=== PATIENT | male | born 1960 | race Caucasian/White ===

== ENCOUNTER 2018-03-05 05:15 | Inpatient (IN) | payer OTHER ==
[2018-03-05 05:48] LABS: ABNORMAL IP MESSAGE 1; HEMATOCRIT 31.5 % (42.0-52.0); HEMOGLOBIN 10.3 g/dl (14.0-18.0); MEAN CORPUSCULAR HEMOGLOBIN 28.9 pg (29.0-33.0); MEAN CORPUSCULAR HGB CONC 32.7 g/dl (32.0-37.0); MEAN CORPUSCULAR VOLUME 88.5 fl (82.0-101.0); MEAN PLATELET VOLUME 10.1 fl (7.4-10.4); PLATELET COUNT 300 10^3/UL (140-415); POSITIVE DIFF @See below; RED BLOOD COUNT 3.56 10^6/ul (4.70-6.10); RED CELL DISTRIBUTION WIDTH 16.1 % (11.5-14.5)
[2018-03-05 05:48] LABS: WHITE BLOOD COUNT 17.7 10^3/ul (4.8-10.8)
[2018-03-05 05:55] LABS: ADD MAN DIFF? YES
[2018-03-05 06:06] LABS: ALANINE AMINOTRANSFERASE 111 IU/L (13-69); ALBUMIN 3.8 g/dl (3.3-4.9); ALBUMIN/GLOBULIN RATIO 0.88; ALKALINE PHOSPHATASE 193 IU/L (42-121); ANION GAP 19 (8-16); ASPARTATE AMINO TRANSFERASE 54 IU/L (15-46); BILIRUBIN,INDIRECT 0.2 mg/dl (0-1.1); BILIRUBIN,TOTAL 0.2 mg/dl (0.2-1.3); BLOOD UREA NITROGEN 21 mg/dl (7-20); CALCIUM 9.6 mg/dl (8.4-10.2); CARBON DIOXIDE 27 mmol/L (21-31); CHLORIDE 98 mmol/L (97-110); CREATININE 0.47 mg/dl (0.61-1.24); GLUCOSE 137 mg/dl (70-220); POTASSIUM 4.6 mmol/L (3.5-5.1); SODIUM 139 mmol/L (135-144); TOTAL PROTEIN 8.1 g/dl (6.1-8.1)
[2018-03-05 06:10] LABS: LACTIC ACID 2.4 mmol/L (0.5-2.0)
[2018-03-05 06:17] LABS: INR 1.08; PROTIME 14.1 Sec (11.9-14.9); PT RATIO 1.1
[2018-03-05 06:18] LABS: PARTIAL THROMBOPLASTIN TIME 36.9 Sec (25.0-35.0); TROPONIN-I 0.022 ng/ml (0.000-0.120)
[2018-03-05 06:34] LABS: ADD UMIC YES; UR ASCORBIC ACID 40 mg/dL (NEGATIVE); UR BACTERIA FEW /HPF (NONE SEEN); UR BILIRUBIN (Dip) NEGATIVE (NEGATIVE); UR BLOOD (Dip) 2+ mg/dL (NEGATIVE); UR CALCIUM OXALATE CRYSTAL FEW /HPF (NONE SEEN); UR CLARITY CLEAR (CLEAR); UR COLOR YELLOW (YELLOW); UR GLUCOSE (Dip) NEGATIVE (NEGATIVE); UR KETONES (Dip) NEGATIVE (NEGATIVE); UR LEUKOCYTE ESTERASE (Dip) 3+ Leu/ul (NEGATIVE); UR MUCUS FEW /HPF (NONE SEEN); UR NITRITE (Dip) POSITIVE (NEGATIVE); UR RBC > 182 /HPF (0-5); UR SPECIFIC GRAVITY (Dip) 1.017 (1.003-1.030); UR TOTAL PROTEIN (Dip) NEGATIVE (NEGATIVE); UR UROBILINOGEN (Dip) NEGATIVE (NEGATIVE); UR WBC 54 /HPF (0-5)
[2018-03-05] MEDS: CEFEPIME 2GM/50 ML (PMX) 50 ML IVPB (06:35)
[2018-03-05] MEDS: SODIUM CHLORIDE 0.9% 1L BAG IV* (06:35)
[2018-03-05 07:03] LABS: AADO2 Arterial 168.2 mmHg (7.0-24.0); Allen Test ACCEPTAB; Arterial Base Excess 5.7 mmol/L (-3.0-3); Arterial Blood Gas Oxygen Sat 98.9 mmHG (95.0-98.0); Arterial COHb 0.3 % (0.0-3.0); Arterial Fraction of Oxyhgb 98.2 % (93.0-99.0); Arterial HCO3 28.5 mmol/L (22.0-26.0); Arterial MetHb 0.4 % (0.0-1.5); Arterial Total Hemglobin 11.1 g/dl (12.0-18.0); Arterial pCO2 34.8 mmhg (35-45); MODE VENT - AC; Site Right Radial
[2018-03-05] MEDS: VANCOMYCIN 1 GM (PMX) 250 ML IVPB (07:10)
[2018-03-05] MEDS ORDERED: ONDANSETRON 4 MG INJ IV (08:30)
[2018-03-05] MEDS ORDERED: ACETAMINOPHEN 325 MG TAB PO ×2 (08:30→11:00)
[2018-03-05] MEDS: ACETAMINOPHEN 650MG/20.3ML CUP GTB (08:31)
[2018-03-05] MEDS: LEVETIRACETAM (100 MG/ML) 5ML CUP GTB (08:33)
[2018-03-05 09:14] LABS: ANISOCYTOSIS 1+ (0-0); BAND NEUTROPHILS #M 7.4 10^3/ul (0.0-0.6); BAND NEUTROPHILS % (M) 42 % (0-4); LYMPHOCYTES #M 0.7 10^3/ul (0.8-2.9); LYMPHOCYTES % (M) 4 % (15-51); MONOCYTE #M 0.5 10^3/ul (0.3-0.9); MONOCYTES % (M) 3 % (0-11); PLATELET ESTIMATE NORMAL; POLYCHROMASIA 2+ (0-0); REACTIVE LYMPHOCYTES #M 0.1 10^3/ul (0.0-0.0); REACTIVE LYMPHOCYTES% (M) 1 % (0-0); SEG NEUT #M 10.2 10^3/ul (1.6-7.5); SEGMENTED NEUTROPHILS (M) % 50 % (39-77); SMUDGE%M 1 % (0-0)
[2018-03-05 09:14] LABS: LACTIC ACID 1.1 mmol/L (0.5-2.0)
[2018-03-05] MEDS ORDERED: VANCOMYCIN IV PER PHARMACY XX (11:00)
[2018-03-05] MEDS ORDERED: ONDANSETRON 4 MG TAB PO (11:00)
[2018-03-05 11:34] LABS: CREATINE KINASE 105 IU/L (23-200)
[2018-03-05 11:35] LABS: LACTIC ACID 1.5 mmol/L (0.5-2.0)
[2018-03-05 11:47] LABS: CK INDEX 2.6; CK-MB 2.75 ng/ml (0.0-2.4); TROPONIN-I 0.028 ng/ml (0.000-0.120)
[2018-03-05] MEDS: SOD CHLORIDE 0.9% 100 ML (12:45)
[2018-03-05] MEDS: LIDOCAINE 1% (MPF) 5 ML VIAL SC (13:03)
[2018-03-05] MEDS: VANCOMYCIN 750 MG in SOD CHLORIDE 0.9% 150 ML IVPB ×2 (16:23→23:20)
[2018-03-05] MEDS: SOD CHLORIDE 0.9% 1,000 ML IV (16:23)
[2018-03-05 17:41] LABS: CREATINE KINASE 171 IU/L (23-200)
[2018-03-05 17:52] LABS: CK INDEX 2.5; TROPONIN-I 0.014 ng/ml (0.000-0.120)
[2018-03-05] MEDS: DOCUSATE SODIUM 100 MG CAP PO (21:00)
[2018-03-05] MEDS: CEFEPIME 1GM/50 ML (PMX) 50 ML IVPB (21:00)
[2018-03-06] MEDS: PANTOPRAZOLE (EC) 40 MG TAB PO (05:44)
[2018-03-06 06:12] LABS: ADD MAN DIFF? NO
[2018-03-06 06:25] LABS: WHITE BLOOD COUNT 13.4 10^3/ul (4.8-10.8)
[2018-03-06 06:25] LABS: BASOPHILS % 0.2 % (0.0-2.0); EOSINOPHILS % 0.3 % (0.0-7.0); HEMATOCRIT 26.9 % (42.0-52.0); HEMOGLOBIN 8.5 g/dl (14.0-18.0); LYMPHOCYTES # 0.7 10^3/ul (0.8-2.9); LYMPHOCYTES % 5.2 % (15.0-51.0); MEAN CORPUSCULAR HEMOGLOBIN 28.8 pg (29.0-33.0); MEAN CORPUSCULAR HGB CONC 31.6 g/dl (32.0-37.0); MEAN CORPUSCULAR VOLUME 91.2 fl (82.0-101.0); MEAN PLATELET VOLUME 10.7 fl (7.4-10.4); MONOCYTE # 0.4 10^3/ul (0.3-0.9); MONOCYTES % 2.8 % (0.0-11.0); NEUTROPHIL # 12.2 10^3/ul (1.6-7.5); NEUTROPHILS % 91.1 % (39.0-77.0); PLATELET COUNT 245 10^3/UL (140-415); RED BLOOD COUNT 2.95 10^6/ul (4.70-6.10); RED CELL DISTRIBUTION WIDTH 16.2 % (11.5-14.5)
[2018-03-06 06:45] LABS: VANCOMYCIN,TROUGH 13.2 ug/ml (10.0-20.0)
[2018-03-06 06:52] LABS: ALANINE AMINOTRANSFERASE 85 IU/L (13-69); ALBUMIN 3.2 g/dl (3.3-4.9); ALKALINE PHOSPHATASE 151 IU/L (42-121); ANION GAP 10 (8-16); ASPARTATE AMINO TRANSFERASE 51 IU/L (15-46); BILIRUBIN,INDIRECT 0.3 mg/dl (0-1.1); BILIRUBIN,TOTAL 0.3 mg/dl (0.2-1.3); BLOOD UREA NITROGEN 16 mg/dl (7-20); CALCIUM 9.4 mg/dl (8.4-10.2); CARBON DIOXIDE 29 mmol/L (21-31); CHLORIDE 103 mmol/L (97-110); CHOL/HDL RATIO 4.8 RATIO; CHOLESTEROL 106 mg/dl (100-200); CREATININE 0.44 mg/dl (0.61-1.24); GLUCOSE 101 mg/dl (70-220); HDL CHOLESTEROL 22 mg/dl (28-71); LDL CHOLESTEROL,CALCULATED 60 mg/dl; MAGNESIUM 1.9 mg/dl (1.7-2.5); SODIUM 138 mmol/L (135-144); TOTAL PROTEIN 7.2 g/dl (6.1-8.1); TRIGLYCERIDES 119 mg/dl (0-149)
[2018-03-06] MEDS: CEFEPIME 1GM/50 ML (PMX) 50 ML IVPB ×2 (08:38→21:55)
[2018-03-06] MEDS: DOCUSATE SODIUM 100 MG CAP PO ×2 (08:38→22:01)
[2018-03-06] MEDS: ASCORBIC ACID 500 MG TAB GTB (08:38)
[2018-03-06] MEDS: ZINC SULFATE 220 MG CAP PO (08:38)
[2018-03-06] MEDS: ENOXAPARIN 30 MG/0.3 ML SYG SC (08:47)
[2018-03-06] MEDS: VANCOMYCIN 750 MG in SOD CHLORIDE 0.9% 150 ML IVPB ×2 (09:25→17:39)
[2018-03-06 12:43] LABS: IRON 31 ug/dl (35-150)
[2018-03-06 12:52] LABS: % IRON SATURATION 13 % SAT (22-52); TOTAL IRON BINDING CAPACITY 239 ug/dl (241-421)
[2018-03-07] MEDS: VANCOMYCIN 750 MG in SOD CHLORIDE 0.9% 150 ML IVPB ×3 (01:41→17:39)
[2018-03-07] MEDS: PANTOPRAZOLE (EC) 40 MG TAB PO (05:18)
[2018-03-07] MEDS: ZINC SULFATE 220 MG CAP PO (08:01)
[2018-03-07] MEDS: CEFEPIME 1GM/50 ML (PMX) 50 ML IVPB ×2 (08:02→21:42)
[2018-03-07] MEDS: DOCUSATE SODIUM 100 MG CAP PO ×2 (08:02→21:42)
[2018-03-07] MEDS: ASCORBIC ACID 500 MG TAB GTB (08:02)
[2018-03-07] MEDS: ENOXAPARIN 30 MG/0.3 ML SYG SC (08:09)
[2018-03-07 12:42] LABS: ALANINE AMINOTRANSFERASE 87 IU/L (13-69); ALBUMIN 3.1 g/dl (3.3-4.9); ALKALINE PHOSPHATASE 145 IU/L (42-121); ASPARTATE AMINO TRANSFERASE 55 IU/L (15-46); BILIRUBIN,INDIRECT 0.1 mg/dl (0-1.1); BILIRUBIN,TOTAL 0.1 mg/dl (0.2-1.3); TOTAL PROTEIN 6.6 g/dl (6.1-8.1)
[2018-03-07 12:43] LABS: MAGNESIUM 1.8 mg/dl (1.7-2.5)
[2018-03-07] MEDS: SOD FERRIC GLUC COMPLX 125 MG in SOD CHLORIDE 0.9% 100 ML IVPB (16:32)
[2018-03-08] MEDS: VANCOMYCIN 750 MG in SOD CHLORIDE 0.9% 150 ML IVPB (02:13)
[2018-03-08] MEDS: PANTOPRAZOLE (EC) 40 MG TAB PO (06:09)
[2018-03-08 06:24] LABS: ADD MAN DIFF? NO
[2018-03-08 06:28] LABS: BASOPHILS % 0.4 % (0.0-2.0); EOSINOPHILS # 0.2 10^3/ul (0.0-0.5); EOSINOPHILS % 2.2 % (0.0-7.0); HEMATOCRIT 30.9 % (42.0-52.0); HEMOGLOBIN 9.8 g/dl (14.0-18.0); LYMPHOCYTES # 0.8 10^3/ul (0.8-2.9); LYMPHOCYTES % 11.6 % (15.0-51.0); MEAN CORPUSCULAR HEMOGLOBIN 28.6 pg (29.0-33.0); MEAN CORPUSCULAR HGB CONC 31.7 g/dl (32.0-37.0); MEAN CORPUSCULAR VOLUME 90.1 fl (82.0-101.0); MEAN PLATELET VOLUME 10.5 fl (7.4-10.4); MONOCYTE # 0.4 10^3/ul (0.3-0.9); MONOCYTES % 5.9 % (0.0-11.0); NEUTROPHIL # 5.4 10^3/ul (1.6-7.5); NEUTROPHILS % 79.5 % (39.0-77.0); PLATELET COUNT 283 10^3/UL (140-415); RED BLOOD COUNT 3.43 10^6/ul (4.70-6.10); RED CELL DISTRIBUTION WIDTH 15.9 % (11.5-14.5)
[2018-03-08 06:28] LABS: WHITE BLOOD COUNT 6.8 10^3/ul (4.8-10.8)
[2018-03-08 07:15] LABS: ANION GAP 10 (8-16); BLOOD UREA NITROGEN 14 mg/dl (7-20); CALCIUM 9.2 mg/dl (8.4-10.2); CARBON DIOXIDE 28 mmol/L (21-31); CHLORIDE 107 mmol/L (97-110); CREATININE 0.37 mg/dl (0.61-1.24); GLUCOSE 119 mg/dl (70-220); POTASSIUM 3.8 mmol/L (3.5-5.1); SODIUM 141 mmol/L (135-144)
[2018-03-08] MEDS: ASCORBIC ACID 500 MG TAB GTB (08:07)
[2018-03-08] MEDS: ZINC SULFATE 220 MG CAP PO (08:07)
[2018-03-08] MEDS: CEFEPIME 1GM/50 ML (PMX) 50 ML IVPB (08:07)
[2018-03-08] MEDS: ENOXAPARIN 30 MG/0.3 ML SYG SC (08:10)
[2018-03-08] MEDS: DOCUSATE SODIUM 100 MG CAP PO (08:11)
[2018-03-08 11:07] LABS: VANCOMYCIN,TROUGH 14.3 ug/ml (10.0-20.0)
== END 2018-03-08 17:34 | DRG 871 ==
LOC: TEL 18:40 → E/R 05:15 → TEL 08:12
PROC: 5A1945Z Respiratory Ventilation, 24-96 Consecutive Hours (ICD-10-PCS; principal; 2018-03-05)
PROC: 02HV33Z Insertion of Infusion Device into Superior Vena Cava, Percutaneous Approach (ICD-10-PCS; 2018-03-05)
PROC: B548ZZA Ultrasonography of Superior Vena Cava, Guidance (ICD-10-PCS; 2018-03-05)
DX: A41.9 Sepsis, unspecified organism (principal); J18.9 Pneumonia, unspecified organism; G93.49 Other encephalopathy; N39.0 Urinary tract infection, site not specified; Z99.11 Dependence on respirator [ventilator] status; R64 Cachexia; Z68.1 Body mass index [BMI] 19.9 or less, adult; J96.10 Chronic respiratory failure, unspecified whether with hypoxia or hypercapnia; R13.19 Other dysphagia; Z93.0 Tracheostomy status; Z93.1 Gastrostomy status
CPT/HCPCS: 36415; 36569; 36600; 71045; 76937; 80048; 80053; 80061; 80076; 80202; 81001; 82550; 82553; 82803; 83540; 83605; 83735; 84484; 85025; 85610; 85730; 87040; 87081; 87086; 93005; 93306; 94002; 94003; 96374; 96375; 99291-25